=== PATIENT | female | born 1970 | race Caucasian/White ===

== ENCOUNTER 2019-03-29 02:50 | Emergency (ER) | payer OTHER ==
[~2019-03-29] VITALS: Ht 172.7 cm; Wt 57.6 kg
--- NOTE | 2019-03-29 03:08 | NUR ---
Dr. Owen at bedside for MSE.
[2019-03-29] MEDS ORDERED: diphenhydrAMINE 50 MG CAPSULE PO ONE (03:15)
[2019-03-29] MEDS ORDERED: predniSONE 20 MG TABLET PO ONE (03:15)
[2019-03-29] MEDS ORDERED: diphenhydrAMINE 50 MG CAPSULE ONE (03:18)
[2019-03-29] MEDS ORDERED: predniSONE 20 MG TABLET ONE (03:18)
--- NOTE | 2019-03-29 03:22 | NUR ---
Patient discharged to home in stable conditon. Written and verbal after care instructions given. Patient verbalizes understanding of instructions. Pt ambulated out of ER with steady gait, no acute signs of distress, VSS, all belongings taken.
[2019-03-29 03:23] VITALS: BP 88/57
== END 2019-03-29 03:23 | disposition home or self-care (01) ==
LOC: ER 02:58
DX: L27.2 Dermatitis due to ingested food (principal); Z88.0 Allergy status to penicillin; Z88.2 Allergy status to sulfonamides; Z91.018 Allergy to other foods
CPT/HCPCS: 99283; J7512; Q0163; A4663